=== PATIENT | male | born 1975 | race Caucasian/White ===

== ENCOUNTER 2024-01-07 02:08 | Emergency (ER) | payer BC, SELFPAY ==
[2024-01-07 02:08] VITALS: BMI 26.9
[2024-01-07 02:14] VITALS: BP 124/80
--- NOTE | 2024-01-07 02:44 | ED.GENMED ---
History of Present Illness
<MARIO Ortiz - Last Filed: 01/07/24 05:12>
General
Chief Complaint: Back Pain
Source: patient
Exam Limitations: none
Time Seen by Provider: 01/07/24 02:32
Nursing documentation reviewed up to this point in time: agreed with
Travel History
Have you had any contact with someone who has COVID-19?: No
Do you have any symptoms of coronavirus? Fever > 100 degrees, chills, cough, shortness of breath, sore throat, loss of taste or smell, muscle aches, or headache?: No
History of Present Illness
History of Present Illness:
This is a 48 year old male, with a PMH of 2 herniated discs at the L4/L5 and L5/S1 levels, who presents to the ED c/o back pain x 12 hours. Pt states he was diagnosed with 2 herniated discs 15 years ago and they have caused relatively few problems
as he has lost weight and been attending yoga. Over the past few months, he has had a couple of injuries that have exacerbated his pain, namely, his son climbing onto his back and slipping on ice. Yesterday, patient was playing golf and after about
8 swings, he noticed his back pain got severely worse. He was unable to walk to the parking lot. Over the past couple of hours, he has been managing the pain with ibuprofen (last dose 5 hours ago), ice, and robaxin, but none have helped. Pt drove to
the hospital today. He denies any CP, SOB, bladder or bowel incontinence, or any saddle anesthesias. He adds that the pain radiates down his legs with his right > left.
Past History
<MARIO Ortiz - Last Filed: 01/07/24 05:12>
Past History
ED Past Medical History: Other (2 herniated discs at L4/L5 and L5/S1)
ED Past Surgical History: Other (vasectomy)
Social History
Tobacco: Non-smoker
Alcohol: None
Drug: Other (vapes nicotine)
Personal:
Living: with family
Employment: Employed (desk work)
Review of Systems
<MARIO Ortiz - Last Filed: 01/07/24 05:12>
Review of Systems
Allergies reviewed?: Yes
All Other Systems: ROS reviewed and negative except as documented in HPI and ROS
Constitutional: Reports no symptoms
EENT: Reports no symptoms
Respiratory: Reports no symptoms; Denies trouble breathing
Cardiac: Reports no symptoms; Denies chest pain
ABD/GI: Reports no symptoms; Denies abdominal pain
: Reports no symptoms; Denies incontinence or difficulty voiding
Musculoskeletal: Reports back pain (radiating down to legs, right > left)
Skin: Reports no symptoms
Neurological: Reports no symptoms; Denies headache
Psychiatric: Reports no symptoms
Phy Exam
<MARIO Ortiz - Last Filed: 01/07/24 05:12>
General Physical Exam
General Presentation: moderate distress
General age: appears stated age
General Skin: warm and dry
General Habitus: normal
General Mental: alert
General Hydration: appears well hydrated
ENT Exam
ENT Exam: pharynx normal, neck supple, normocephalic and swallowing well
Cardiovascular Exam
Cardiovascular Exam: regular rate/rhythm, no edema, no murmur and normal peripheral pulses
Pulmonary Exam
Pulmonary Exam: lungs clear, no respiratory distress, no rales, no crackles, no rhonchi, no wheezing and no cough
Gastrointestinal Exam
Gastrointestinal Exam: normal bowel sounds, non tender, soft and non distended
Neurological Exam
Neurological Exam: alert and oriented x3
Musculoskeletal Exam
Musculoskeletal Exam: back pain (lower back), no edema and other (positive straight leg raise, sensation intact)
Skin Exam
Skin Exam: normal color and warm/dry
Psychiatric Exam
Psychiatric Exam: normal mood/affect
Course
<MARIO Ortiz - Last Filed: 01/07/24 05:12>
Orders/Labs/Results
Orders:
Orders
01/07/24 02:50
Diazepam [Valium] 5 mg PO NOW STA
Ketorolac [Toradol] 60 mg IM NOW STA
Lumbar Spine, 2 or 3 View [CR Lumbar Spine 2 Or 3 Views] Urgent
Comment:
Reason For Exam: lbp
01/07/24 04:03
Lidocaine [Lidocaine 4% Patch] 1 patch TOPICAL NOW STA
01/07/24 05:22
Diazepam [Valium] 5 mg .ROUTE .STK-MED ONE
01/07/24 05:40
HYDROmorphone [Dilaudid] 0.5 mg IM NOW STA
01/07/24 06:35
Physical Therapy Consult [Pt Eval And Treat] Urgent
Activity Level: Encourage Progressive Amb
Vital Signs
Initial and Last Documented VS:
Initial Vital Signs
Temp Pulse Resp BP Pulse Ox
97.9 F 81 16 124/80 98
01/07/24 02:14 01/07/24 02:14 01/07/24 02:14 01/07/24 02:14 01/07/24 02:14
Last Documented Vital Signs
Temp Pulse Resp BP Pulse Ox
97.9 F 81 16 124/80 98
01/07/24 02:14 01/07/24 02:14 01/07/24 02:14 01/07/24 02:14 01/07/24 02:14
<Mitesh Menchaca DO - Last Filed: 01/08/24 22:04>
Orders/Labs/Results
Orders:
Orders
01/07/24 02:50
Diazepam [Valium] 5 mg PO NOW STA
Ketorolac [Toradol] 60 mg IM NOW STA
Lumbar Spine, 2 or 3 View [CR Lumbar Spine 2 Or 3 Views] Urgent
Comment:
Reason For Exam: lbp
01/07/24 04:03
Lidocaine [Lidocaine 4% Patch] 1 patch TOPICAL NOW STA
01/07/24 05:22
Diazepam [Valium] 5 mg .ROUTE .STK-MED ONE
01/07/24 05:40
HYDROmorphone [Dilaudid] 0.5 mg IM NOW STA
01/07/24 06:35
Physical Therapy Consult [Pt Eval And Treat] Urgent
Activity Level: Encourage Progressive Amb
Vital Signs
Initial and Last Documented VS:
Initial Vital Signs
Temp Pulse Resp BP Pulse Ox
97.9 F 81 16 124/80 98
01/07/24 02:14 01/07/24 02:14 01/07/24 02:14 01/07/24 02:14 01/07/24 02:14
Last Documented Vital Signs
Temp Pulse Resp BP Pulse Ox
97.9 F 81 16 124/80 98
01/07/24 02:14 01/07/24 02:14 01/07/24 02:14 01/07/24 02:14 01/07/24 02:14
Rhondalt;Mitesh Payton DO - Last Filed: 01/07/24 09:17>
Orders/Labs/Results
Orders:
Orders
01/07/24 02:50
Diazepam [Valium] 5 mg PO NOW STA
Ketorolac [Toradol] 60 mg IM NOW STA
Lumbar Spine, 2 or 3 View [CR Lumbar Spine 2 Or 3 Views] Urgent
Comment:
Reason For Exam: lbp
01/07/24 04:03
Lidocaine [Lidocaine 4% Patch] 1 patch TOPICAL NOW STA
01/07/24 05:22
Diazepam [Valium] 5 mg .ROUTE .STK-MED ONE
01/07/24 05:40
HYDROmorphone [Dilaudid] 0.5 mg IM NOW STA
01/07/24 06:35
Physical Therapy Consult [Pt Eval And Treat] Urgent
Activity Level: Encourage Progressive Amb
Vital Signs
Initial and Last Documented VS:
Initial Vital Signs
Temp Pulse Resp BP Pulse Ox
97.9 F 81 16 124/80 98
01/07/24 02:14 01/07/24 02:14 01/07/24 02:14 01/07/24 02:14 01/07/24 02:14
Last Documented Vital Signs
Temp Pulse Resp BP Pulse Ox
97.9 F 81 16 124/80 98
01/07/24 02:14 01/07/24 02:14 01/07/24 02:14 01/07/24 02:14 01/07/24 02:14
<MARIO Ortiz - Last Filed: 01/07/24 05:12>
*Critical Care Note
Total Time (30-74mins, 75-104mins- exclusive of procedures): Not Applicable
<Mitesh Menchaca DO - Last Filed: 01/08/24 22:04>
*Radiology
Radiology exam reviewed: all reviewed NAD by ED Provider
*Pulse Oximetry
Patient hypoxic: no
*Critical Care Note
Total Time (30-74mins, 75-104mins- exclusive of procedures): Not Applicable
<Mitesh Menchaca DO - Last Filed: 01/08/24 22:04>
Update Note
Update Note:
01/07/2024 0541 AM: Patient states his pain is decreasing. It is currently 7 out of 10 with the Valium. He is requesting further pain medicine
01/07/2024 0639 AM: Patient feeling much better but still is in pain. He is still resting. He states is 5-6 out of 10 in pain. Physical therapy consulted for evaluation and treatment. Patient likely to be discharged. Prescription sent to the
pharmacy. Follow-up [facility] orth[facility]. Patient still denies bowel or bladder retention or incontinence. He denies any perineal paresthesias. Patient will be continued to be observed in the emergency department.
<Mitesh Payton DO - Last Filed: 01/07/24 09:17>
Update Note
Update Note:
01/07/2024 0541 AM: Patient states his pain is decreasing. It is currently 7 out of 10 with the Valium. He is requesting further pain medicine
01/07/2024 0639 AM: Patient feeling much better but still is in pain. He is still resting. He states is 5-6 out of 10 in pain. Physical therapy consulted for evaluation and treatment. Patient likely to be discharged. Prescription sent to the
pharmacy. Follow-up [facility] orthopedics. Patient still denies bowel or bladder retention or incontinence. He denies any perineal paresthesias. Patient will be continued to be observed in the emergency department.
0916: Pt seen by PT. They recommend outpatient therapy but feel pt is okay to go home. Will add medrol dose pack
ED Attending Note
<MARIO Ortiz - Last Filed: 01/07/24 05:12>
-
Portions of this chart may have been created with voice recognition software.� Occasional wrong word or��sound alike� substitutions may have occurred due to the inherent limitations of voice recognition software.
<Mitesh Menchaca DO - Last Filed: 01/08/24 22:04>
ED Attending Note
Patient seen and examined by attending physician: Yes
I performed the substantive portion of visit, reviewed & personally made and approve the management plan that is documented in note by myself or CONSUELO.: Yes
ED Attending Note:
This a pleasant 48-year-old male presents with acute on chronic low back pain. He states that 15 years ago, he herniated 2 disks in his low back. After 6 months of rehab and strengthening his core, he was mostly pain-free. About 6 months ago, he
states that his adult son 'hung on his neck '. He states that he threw out his back again, he started rehabilitation and chiropractic visits. He states that the pain improved but then worsened again 2 months ago. Again the pain improved. Today
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 He states that 10 swings, his back started to hurt. By the time he got to the car he was in severe amount of pain. He took NSAIDs and
Robaxin at home with minimal relief. He came into the emergency department for treatment. Initially patient stated that he did not want any narcotic pain medications if possible. He is a recovering alcoholic and values his 15 months of sobriety.
He feels that if he got stronger pain medications it could compromise his alcoholic sobriety. Patient denies bowel or bladder retention or incontinence. He denies any perineal numbness. Patient was seen in conjunction with the PA student. I have
reviewed and agree with the history and treatment plan presented. On my independent physical exam, patient is awake, alert, and oriented x3, moderate acute distress. No respiratory distress noted.
Discharge Plan
Departure
Patient Disposition: Home (Routine Discharge)
Date of Disposition: 01/07/24
Time of Disposition: 09:27
Patient with high blood pressure during this ER visit?: No
Condition: Fair
Discharge Problem:
Low back pain
Instructions: Low Back Pain (DC), Radiculopathy (DC)
Prescriptions:
New
oxycodone-acetaminophen [Percocet] 5-325 mg tablet
1 tab PO Q6HPRN PRN (Reason: pain) Qty: 7 0RF
diclofenac sodium 75 mg tablet,delayed release (DR/EC)
75 mg PO BID Qty: 10 0RF
methylprednisolone [Methylpred DP] 4 mg tablets,dose pack
See Rx Instructions .ROUTE .COMPLEX Qty: 21 0RF
Rx Instructions:
orally per package directions
Referrals:
[facility] [Provider Group]
Carline Campbell CRNP [Family Provider] -
Activity Restrictions/Additional Instructions:
Your prescriptions were sent to the [facility] in [place]
It was a pleasure meeting you and taking part in your care. We hope for your continued healing and wellness.
Please read discharge instructions in their entirety. However, they are for general education and may not describe your exact diagnosis at discharge. Information on your ER visit and medical conditions were discussed with you along with appropriate
follow up information...
If indicated, please take your medications as instructed and indicated on discharge paperwork.
Please schedule a follow up appointment as directed. Call to schedule an appointment
Please return to the emergency department with ANY change in, persisting, or worsening of symptoms. If any of your symptoms do not improve, or persist, or become more severe within 6-12 hours, please return to the emergency department for further
care.
Please return to the emergency department if you develop a headache, neck pain/stiffness, fever greater than 100.4F, chest pain, shortness of breath, persistent nausea, vomiting, slurred speech, difficulty walking, numbness/tingling, weakness, signs
of infection or any other symptoms that are worrisome to you.
If you have any questions or concerns please do not hesitate to call the Hospital at or E-mail me directly at [email or web address]
Interventions
Interventions:
*Risk Screen - Suicide Last Done: 01/07/24 02:14
*General Assessment Last Done: 01/07/24 02:14
*Neglect/Abuse Screening Last Done: 01/07/24 02:14
*ED COVID-19 Vaccine History Last Done: 01/07/24 02:14
*Nursing Disposition Last Done: 01/07/24 10:16
ED-Musculoskeletal Assessment Last Done: 01/07/24 09:30
Discharge Date and Time
Discharge Date/Time: 01/07/24 10:17
[2024-01-07] MEDS: TORADOL 60 MG IM (03:30)
[2024-01-07] MEDS: LIDOCAINE 4% PATCH 1 PATCH TOPICAL (04:15)
[2024-01-07] MEDS: VALIUM 5 MG PO (05:24)
[2024-01-07] MEDS: DILAUDID 0.5 MG IM (05:58)
== END 2024-01-07 10:17 | disposition home or self-care (01) ==
LOC: EMR 02:08
PROVIDERS: EMERGENCY PHYSICIAN Student in an Organized Health Care Education/Training Program; FAMILY PHYSICIAN Nurse Practitioner Adult Health
DX: M54.50 Low back pain, unspecified (principal); G89.29 Other chronic pain
CPT/HCPCS: 99284; 96372 ×2; 72100

== ENCOUNTER → 2024-03-05 06:21 | Day surgery (SDC) | payer BC, SELFPAY | LOC: GI 06:21 | PROVIDERS: ATTENDING PHYSICIAN Specialist | DX: Z12.11 Encounter for screening for malignant neoplasm of colon (principal); Z80.0 Family history of malignant neoplasm of digestive organs | CPT/HCPCS: G0121 ==

== ENCOUNTER → 2025-04-01 12:21 | Outpatient (REF) | payer BC, SELFPAY | LOC: HWRAD 12:21 | PROVIDERS: ATTENDING PHYSICIAN Nurse Practitioner Adult Health | DX: R00.2 Palpitations (principal) | CPT/HCPCS: 71046 ==